=== PATIENT | female | born 1990 | race Caucasian/White ===

== ENCOUNTER 2017-04-07 19:20 | Emergency (ER) | payer MEDICAID ==
[~2017-04-07 19:20] MED LIST: ALBUTEROL17 G1 IH; BACITRACIN OP3.5 GM OU; BACTROBAN15 GM TOP; BENADRYL PO; BENADRYL25 M3 PO; CIPRO PO; CLEOCIN PO; COLACE1 SUPP.RE1 PO; COMBIVENT INH14.7 GM INH; ELIMITE60 GM TOP; FAMOTIDINE PO; FLAGYL PO; ILOTYCIN1 GM OD; MACROBID100 MG PO; MEDROL PO; MULTI-DAY VITAM1 TAB PO; NAPROSYN500 MG PO; PERMETHRIN60 GM TP; PREDNISONE1 MG PO; PRENATAL VITAMI1 TA3 PO; PYRIDIUM PO; PYRIDIUM100 MG PO; ULTRAM PO; VIBRAMYCIN100 M1 PO; VICODIN 5/1 TAB 5/50 DOB; ZITHROMAX PO
== END 2017-04-07 20:24 | disposition home or self-care (01) ==
LOC: CED 19:20 → CFTX 19:20
DX: J02.0 Streptococcal pharyngitis (principal); J45.909 Unspecified asthma, uncomplicated; F32.9 Major depressive disorder, single episode, unspecified; E03.9 Hypothyroidism, unspecified; Z88.2 Allergy status to sulfonamides; Z88.1 Allergy status to other antibiotic agents
CPT/HCPCS: 87880; 96372; 99283; J0561

== ENCOUNTER 2017-05-28 10:14 | Emergency (ER) | payer MEDICAID ==
[~2017-05-28] VITALS: Ht 170.2 cm; Wt 56.7 kg
== END 2017-05-28 11:37 | disposition home or self-care (01) ==
LOC: CED 10:14 → CFTX 10:14
DX: R21 Rash and other nonspecific skin eruption (principal); E03.9 Hypothyroidism, unspecified; F17.210 Nicotine dependence, cigarettes, uncomplicated; Z88.1 Allergy status to other antibiotic agents; Z88.2 Allergy status to sulfonamides
CPT/HCPCS: 99282